=== PATIENT | male | born 1990 | race Caucasian/White ===

== ENCOUNTER 2021-11-27 15:39 | Inpatient (IN) | payer MEDICAID, OTHER ==
[~2021-11-27] VITALS: Ht 167.6 cm; Wt 66.2 kg
[2021-11-27] MEDS ORDERED: FLUO10CA24 PO (17:11)
[2021-11-27 17:23] LABS: BASOPHILS % (AUTO) 0.2 % (0.0-2.0); EOSINOPHILS % (AUTO) 0.4 % (1.0-6.0); HEMATOCRIT 46.3 % (41-53); LYMPHOCYTES # (AUTO) 1.3 K/uL (1.0-4.8); LYMPHOCYTES % (AUTO) 18.1 % (22.0-44.0); MEAN CORPUSCULAR HEMOGLOBIN 30.6 pg (26.0-34.0); MEAN CORPUSCULAR HGB CONC 34.6 G/dL (31.0-37.0); MEAN CORPUSCULAR VOLUME 88 fL (80-100); MONOCYTES # (AUTO) 0.4 K/uL (0.1-1.0); NEUTROPHILS # (AUTO) 5.6 K/uL (1.8-7.7); NEUTROPHILS % (AUTO) 76.3 % (40.0-70.0); PLATELET COUNT (AUTO) 144 K/uL (150-450); RED BLOOD CELL COUNT(AUTO) 5.23 MIL/uL (4.50-5.90); RED CELL DISTRIBUTION WIDTH 13.4 % (11.5-14.5)
[2021-11-27 17:32] LABS: ANION GAP 8 mmol/L (8-16); CALCIUM, TOTAL 9.3 mg/dL (8.8-10.5); CARBON DIOXIDE 28 mmol/L (22-29); CHLORIDE 102 mmol/L (98-107); CREATININE 0.87 mg/dL (0.60-1.30); GLOMERULAR FILTR. RATE CALC > 60 mL/min (>60); GLUCOSE,RANDOM 95 mg/dL (70-110); POTASSIUM 4.2 mmol/L (3.5-5.1); SODIUM SERUM 138 mmol/L (136-145); UREA NITROGEN, BLOOD 18 mg/dL (7-18)
[2021-11-27 17:37] LABS: ALANINE AMINOTRANSFERASE 44 U/L (12-78); ALBUMIN 4.4 g/dL (3.4-5.0); ALKALINE PHOSPHATASE 87 U/L (46-116); ASPARTATE AMINOTRANSFERASE 23 U/L (15-37); BILIRUBIN,TOTAL 0.6 mg/dL (0.1-1.0); TOTAL PROTEIN, SERUM 8.1 g/dL (6.4-8.2)
[2021-11-27 19:08] LABS: COVID AG,FIA SOURCE NASOPHARYNGEAL
[2021-11-27] MEDS ORDERED: LORazepam 2 MG TABLET PO PRN (19:45)
[2021-11-27] MEDS ORDERED: ZOLPIDEM TARTRATE 10 MG TABLET PO PRN (19:45)
[2021-11-28 01:42] VITALS: BP 121/78
[2021-11-28 01:45] VITALS: BP 121/78
[2021-11-28 08:42] VITALS: BP 108/67
[2021-11-28] MEDS: FLUoxetine HCL 20 MG CAPSULE PO SCH (15:10)
[2021-11-28] MEDS: DIVALPROEX SODIUM 250 MG DR TABLET PO SCH (17:30)
[2021-11-28 18:05] VITALS: BP 112/60
[2021-11-29 08:00] VITALS: BP 119/71
[2021-11-29] MEDS ORDERED: FLUoxetine HCL 20 MG CAPSULE PO SCH (09:00)
[2021-11-29] MEDS: DIVALPROEX SODIUM 250 MG DR TABLET PO SCH ×2 (09:52→16:59)
[2021-11-29] MEDS: FLUoxetine HCL 20 MG CAPSULE PO SCH (09:52)
[2021-11-29 16:33] VITALS: BP 126/78
[2021-11-30 08:57] VITALS: BP 149/91
[2021-11-30] MEDS: DIVALPROEX SODIUM 250 MG DR TABLET PO SCH ×2 (09:45→16:31)
[2021-11-30] MEDS: FLUoxetine HCL 20 MG CAPSULE PO SCH (09:45)
[2021-11-30 16:38] VITALS: BP 122/72
[2021-12-01 08:49] VITALS: BP 138/83
[2021-12-01] MEDS: DIVALPROEX SODIUM 250 MG DR TABLET PO SCH ×2 (09:20→16:11)
[2021-12-01] MEDS: FLUoxetine HCL 20 MG CAPSULE PO SCH (09:20)
[2021-12-01 17:24] VITALS: BP 132/79
[2021-12-02] MEDS: FLUoxetine HCL 20 MG CAPSULE PO SCH (08:52)
[2021-12-02] MEDS: DIVALPROEX SODIUM 250 MG DR TABLET PO SCH ×2 (08:52→16:11)
[2021-12-02 09:09] VITALS: BP 128/74
[2021-12-02 16:44] VITALS: BP 131/79
[2021-12-02] MEDS ORDERED: FLUO20CA36 PO (18:10)
[2021-12-02] MEDS ORDERED: DIVA-111 PO (18:11)
== END 2021-12-02 19:00 | disposition home or self-care (01) | DRG 754 ==
LOC: EMS 15:43 → 3EI 19:37
PROVIDERS: ADMIT Psychiatry & Neurology Psychiatry; ATTEND Psychiatry & Neurology Psychiatry
DX: F32.9 Major depressive disorder, single episode, unspecified (principal); F25.9 Schizoaffective disorder, unspecified; R45.851 Suicidal ideations; Z20.822 Contact with and (suspected) exposure to COVID-19; F41.9 Anxiety disorder, unspecified; G47.00 Insomnia, unspecified; K21.9 Gastro-esophageal reflux disease without esophagitis; K59.00 Constipation, unspecified
CPT/HCPCS: 80053; 85025; 99285; G0480